=== PATIENT | male | born 1960 | race Two or more races ===

== ENCOUNTER 2018-03-24 07:12 | Outpatient (CLI) | payer OTHER | END 2018-03-24 07:27 | disposition home or self-care (01) | LOC: TOM 07:12 | DX: R10.32 Left lower quadrant pain (principal) ==

== ENCOUNTER 2025-01-05 05:38 | Emergency (ER) | payer OTHER ==
[~2025-01-05] VITALS: Ht 172.7 cm; Wt 101.6 kg
[2025-01-05] MEDS ORDERED: SYNTHROID112 MCG PO (05:52)
[2025-01-05] MEDS ORDERED: ZESTRIL20 MG PO (05:52)
[2025-01-05] MEDS ORDERED: ZYLOPRIM100 M1 PO (05:52)
[2025-01-05] MEDS ORDERED: CYMBALTA PO (05:52)
[2025-01-05] MEDS ORDERED: MYRBETRIQ25 MG PO (05:53)
[2025-01-05] MEDS ORDERED: EZALLOR SPRINKL20 MG PO (05:53)
[2025-01-05] MEDS ORDERED: AMLODIPINE-OLM1 EAC2 PO (05:54)
[2025-01-05] MEDS ORDERED: OZEMPIC1 MG/0.71 (05:55)
[2025-01-05] MEDS ORDERED: PHENAZOPYRIDINE HCL 100 MG TABLET PO STA (06:50)
[2025-01-05] MEDS ORDERED: CEFTRIAXONE SODIUM 1,000 MG VIAL IV STA (06:51)
[2025-01-05 08:58] LABS: BASO % 0.2 % (0.1-1.2); EOS # 0.14 (0.04-0.54); EOS % 0.8 % (0.7-7.0); LYMPH # 1.08 (1.18-3.74); LYMPH % 6.0 % (19.3-53.1); MEAN PLATELET VOLUME 12.60 fl (9.4-12.4); MONO # 1.34 (0.24-0.82); MONO % 7.5 % (4.7-12.5); NEUT # 15.20 (1.56-6.13); NEUT % 85.1 % (34.0-71.1); RED CELL DISTRIBUTION WIDTH 13.7 % (11.6-14.4)
[2025-01-05 09:05] LABS: URINE APPEARANCE Turbid; URINE BILIRRUBIN Small (NEGATIVE); URINE BLOOD Moderate; URINE COLOR Red; URINE GLUCOSE Negative (NEGATIVE); URINE KETONE Negative (NEGATIVE); URINE LEUKOCYTE Large; URINE NITRATE Positive; URINE UROBILINOGEN 1.0 E.U./dl
[2025-01-05 09:09] LABS: URINE BACTERIA 586.7 uL (0.0-1933); URINE WBC 1083.5 uL (0.0-23.2)
[2025-01-05 09:10] LABS: URINE CAST 0.00 uL (0.0-1.40); URINE EPITHELIAL CELLS 1.2 uL (0.0-38.8); URINE PROTEIN 100 (NEGATIVE); URINE RBC > 10558.9 uL (0.0-20.8)
[2025-01-05] MEDS ORDERED: CEFTRIAXONE SODIUM 2,000 MG VIAL IV ONE (09:30)
[2025-01-05 09:45] LABS: BUN CREA RATIO 26.0 (7.0-25.0); CREATININE SERUM 0.68 mg/dL (0.70-1.30); GFR 116.31; GLUCOSE FASTING 104.0 mg/dL (65-100); OSMOLALITY SERUM 283.0 MOSM/KG (275-295)
== END 2025-01-05 12:01 | disposition home or self-care (01) ==
LOC: ER 05:39
PROVIDERS: General Practice
DX: N30.80 Other cystitis without hematuria (principal); R31.9 Hematuria, unspecified; R30.0 Dysuria; Z87.442 Personal history of urinary calculi; Z85.46 Personal history of malignant neoplasm of prostate; I10 Essential (primary) hypertension; Z79.4 Long term (current) use of insulin; N20.0 Calculus of kidney
CPT/HCPCS: 36415; 74176; 74240; 96365; 99284; J0696